=== PATIENT | female | born 1995 | race Caucasian/White ===

== ENCOUNTER 2021-09-03 14:16 | Inpatient (IN) | payer OTHER ==
[~2021-09-03] VITALS: Ht 165.1 cm; Wt 102.1 kg
[~2021-09-03 14:16] MED LIST: IBUPROFEN600 MG PO
[2021-09-05 18:25] LABS: HEMOGLOBIN 12.7 gm/dl (12.3-15.3); RED BLOOD COUNT 4.01 M/UL (4.00-5.10); WHITE BLOOD COUNT 20.4 K/UL (4.5-11.0)
[2021-09-05] MEDS ORDERED: OMEPRAZOLE40 MG PO (19:57)
[2021-09-05] MEDS ORDERED: PRENATAL VITAM1 EAC3 PO (19:59)
[2021-09-07 03:36] LABS: HEMOGLOBIN 9.9 gm/dl (12.3-15.3)
[2021-09-08] MEDS ORDERED: COLACE100 MG PO (08:10)
[2021-09-08] MEDS ORDERED: IBUPROFEN800 MG PO (08:10)
[2021-09-08] MEDS ORDERED: HEMOCYTE324 MG PO (08:10)
[2021-09-08] MEDS ORDERED: PERCOCET 5/325 T1 EA PO (08:10)
== END 2021-09-08 15:54 | disposition home or self-care (01) | DRG 807 ==
LOC: LBRF 14:16 → OB 09-05 16:52 → CDU 09-05 17:55 → OB 09-05 17:56
PROVIDERS: ADMIT Obstetrics & Gynecology
PROC: 10E0XZZ Delivery of Products of Conception, External Approach (ICD-10-PCS; principal; 2021-09-05)
PROC: 3E033VJ Introduction of Other Hormone into Peripheral Vein, Percutaneous Approach (ICD-10-PCS; 2021-09-05)
PROC: 4A1HXCZ Monitoring of Products of Conception, Cardiac Rate, External Approach (ICD-10-PCS; 2021-09-05)
PROC: 10907ZC Drainage of Amniotic Fluid, Therapeutic from Products of Conception, Via Natural or Artificial Opening (ICD-10-PCS; 2021-09-05)
DX: O99.214 Obesity complicating childbirth (principal); Z37.0 Single live birth; E66.9 Obesity, unspecified; Z3A.39 39 weeks gestation of pregnancy; Z20.822 Contact with and (suspected) exposure to COVID-19; Z82.49 Family history of ischemic heart disease and other diseases of the circulatory system; Z83.3 Family history of diabetes mellitus; O99.334 Smoking (tobacco) complicating childbirth; F17.210 Nicotine dependence, cigarettes, uncomplicated; O69.81X0 Labor and delivery complicated by cord around neck, without compression, not applicable or unspecified
CPT/HCPCS: 36415; 51702; 81001; 85014; 85018; 85025; J0595; J2405; J2590; J2795; U0003